=== PATIENT | female | born 1990 | race Caucasian/White ===

== ENCOUNTER 2016-09-16 14:11 | Emergency (ER) | payer OTHER ==
--- NOTE | 2016-09-16 17:40 | ED ORDER SUMMARY ---
..... Patient: EDVIN MCGILL OrderSheet [facility] VisitID: [id number] Juancarlos Velásquez [place] [address] 26y, F Registration Date/Time: 09/16/2016 ORDER SHEET Weight: 58.9 kg (stated) Allergies: Penicillin, Cephalosporins GENERAL ORDERS: CBC w Diff Urgent (14:42 09/16/2016 ABlanchette PA-C) (Ack 14:46 RKaruga) (14:47 ASchmuck) CMP Urgent (14:42 09/16/2016 ABlanchette PA-C) (Ack 14:46 RKaruga) (14:47 ASchmuck) UA-Culture if indicated Urgent (14:42 09/16/2016 ABlanchette PA-C) (Ack 14:46 RKaruga) (14:47 ASchmuck) Urine Urgent (14:42 09/16/2016 ABlanchette PA-C) (Ack 14:46 RKaruga) (14:47 ASchmuck) MEDICATION ORDERS: IV FLUIDS: IV NS with Normal Saline 1 Liter: initial bolus none -, then 1000 mL/hr for X1 (NOW) (14:42 09/16/2016 ABlanchette PA-C) (14:48 ASchmuck) Zofran IV 4 mg (NOW) (14:42 09/16/2016 ABlanchette PA-C) (14:48 ASchmuck) IV#2 NS : initial bolus none -, then 1000 mL/hr (NOW) (16:24 09/16/2016 Yan R.N. verbal order read back to ABlanchette PA-C) (16:25 Yan R.N.) Reglan IV 10 mg (NOW) (16:44 09/16/2016 ABlanchette PA-C) (16:51 Yan R.N.) ORDER SHEET NOTES: [Electronically signed by Tad Mancia R.N. (18:28 09/16/2016)] [Electronically signed by Florinda BernardC (23:47 09/16/2016)] [Electronically locked/signed by Tad Mancia R.N. (18:28 09/16/2016)]
--- NOTE | 2016-09-16 17:40 | ED ORDER SUMMARY ---
..... Patient: EDVIN MCGILL OrderSheet [facility] VisitID: [id number] Juancarlos Velásquez [place] [address] 26y, F Registration Date/Time: 09/16/2016 ORDER SHEET Weight: 58.9 kg (stated) Allergies: Penicillin, Cephalosporins GENERAL ORDERS: CBC w Diff Urgent (14:42 09/16/2016 ABlanchette PA-C) (Ack 14:46 RKaruga) (14:47 ASchmuck) CMP Urgent (14:42 09/16/2016 ABlanchette PA-C) (Ack 14:46 RKaruga) (14:47 ASchmuck) UA-Culture if indicated Urgent (14:42 09/16/2016 ABlanchette PA-C) (Ack 14:46 RKaruga) (14:47 ASchmuck) Urine Urgent (14:42 09/16/2016 ABlanchette PA-C) (Ack 14:46 RKaruga) (14:47 ASchmuck) MEDICATION ORDERS: IV FLUIDS: IV NS with Normal Saline 1 Liter: initial bolus none -, then 1000 mL/hr for X1 (NOW) (14:42 09/16/2016 ABlanchette PA-C) (14:48 ASchmuck) Zofran IV 4 mg (NOW) (14:42 09/16/2016 ABlanchette PA-C) (14:48 ASchmuck) IV#2 NS : initial bolus none -, then 1000 mL/hr (NOW) (16:24 09/16/2016 Yan R.N. verbal order read back to ABlanchette PA-C) (16:25 Yan R.N.) Reglan IV 10 mg (NOW) (16:44 09/16/2016 ABlanchette PA-C) (16:51 Yan R.N.) ORDER SHEET NOTES: [Electronically signed by Tad Mancia R.N. (18:28 09/16/2016)] [Electronically signed by Florinda BernardC (23:47 09/16/2016)] [Electronically locked/signed by Tad Mancia R.N. (18:28 09/16/2016)]
--- NOTE | 2016-09-16 17:40 | ED NURSING NOTES ---
Clinical Report - Nurses [facility] [address] [place] [address] 09/16/2016 14:15 Patient: EDVIN MCGILL TRIAGE Triage time 14:19 Sep 16 2016. Acuity: LEVEL 3. Chief Complaint: VOMITING and DIARRHEA. 14:09/16/16. Alert. No acute distress. SEPSIS SCREEN: Sepsis Screen. Negative (no infection suspected/documented). RACHEAL COMA SCORE: [place] Coma Scale: 15- eyes open spontaneously (4); best verbal response- oriented x 4 (5); best motor response- obeys commands (6). --14:29 Carola Chang 14:29 09/16/16. BP: 118/81. HR: 110. RR: 16. O2 saturation: 100%. Temp: 98.2 F. Pain level now 3/10. --14:29 Carola Chang. Weight: 58.9 kg stated. Height/Length: 62 inches Per Patient. BMI: 23.8. --14:28 Carola Chang. Medications None. --14:24 Carola Chang. Medication/allergy information source: the patient. --14:29 Carola Chang. Allergies Penicillin. --14:24 Carola Chang Cephalosporins. --14:25 Carola Chang. History Arrived by private vehicle. Historian: patient. Accompanied by spouse. No primary care physician. This started yesterday. ( Pt reports that she started vomiting last night and then having diarrhea in the middle of the night. Pt reports she house sit for a family that had noro-virus, pt's sister was sick as well. Pt reports that she has had decreased urination.). She has had nausea, vomiting, diarrhea and abdominal pain. The pain is described as located in the central area of the abdomen. She has had fever (unsure). No constipation. Last oral intake by patient was (yesterday morning). Treatment COURT MONITOR: (Tums). PAST MEDICAL HX: No history of diabetes mellitus. No history of gastroesophageal reflux disease, peptic ulcer disease or gallstones. Immunizations: up-to-date. Last normal menstrual period was 3 weeks ago. SOCIAL HX: Never smoker. Occasional alcohol use. No drug use. No recent travel. She has had contact with a sick individual. FALL RISK ASSESSMENT: Fall risk assessment completed. No fall risk identified. NUTRITIONAL RISK ASSESSMENT: The nutritional risk assessment revealed no deficiencies. FUNCTIONAL ASSESSMENT: Functional assessment: no impairments noted. LEARNING NEEDS ASSESSMENT: The learning needs assessment revealed no barriers. SKIN INTEGRITY ASSESSMENT: Skin integrity risk assessment completed. No skin integrity risk identified. --14:29 Carola Chang. Assessment The patient states feels the same. --14:29 Carola Chang. Interventions ID band on patient. --14: Carola Chang. PHYSICAL ASSESSMENT 14:09/16/16. Ambulatory to room. Patient gowned. GENERAL / NEURO / PSYCH: Alert. Oriented X 4. Appears in no acute distress. HEENT: Mucous membranes are pink. RESPIRATORY: Respirations not labored. CVS: Capillary refill less than 2 seconds. GI / : The patient has had nausea. Abdomen soft. Abdominal tenderness. Stool color normal. SKIN: Skin is warm and dry. --14:29 Carola Chang. NURSING PROGRESS NOTES 14:09/16/16. The plan of care for this patient has been created. Patient gowned. Head of bed elevated. Reassurance given. Two patient identifiers checked. Call light placed in reach. Side rails up x 1. Bed placed in lowest position. Brakes of bed on. Patient ready for evaluation- chart flagged and ED physician and PA notified. --14:29 Carola Chang 14:37 09/16/2016 Site #1 started via IV in the right antecubital space with an 20g angiocath, with aseptic technique and good blood return; one attempt. Blood drawn: rainbow set. Labeled in the presence of the patient and sent to the lab. Saline lock flushed with 10 mL saline. --14:47 Carola Chang 14:43 09/16/2016 Started bag #1 1000 mL IV Fluids IV NS (Saline); at 1000 mL/hr over 1 hour(s) via site #1 via IV pump. Allergies verified and confirmed 5 rights. IV patency established. IV site checked: no pain, redness, or swelling. IV flushed thoroughly pre- and post-medication administration. --14:48 Carola Chang 14:45 09/16/2016 Zofran (Ondansetron HCl) IVP 4 mg given over 1 minute(s) via site #1. Allergies verified and confirmed 5 rights. IV patency established. IV site checked: no pain, redness, or swelling. IV flushed thoroughly pre- and post-medication administration. IVP given by RN. --14:48 Carola Chang 15:32 09/16/16. BP: 104/67. HR: 103. RR: 15. O2 saturation: 100%. Pain level now 08/31. --15:32 Carola Chang 15:40 09/16/2016 IV Fluids IV NS Discontinued: bag #1 infused. Total amount infused: 1000 mL. IV patency established. IV site checked: no pain, redness, or swelling. IV flushed thoroughly. --15:55 Tad Mancia R.NKelsea 16:03 09/16/16. Care transferred and report given (Tad Monroy RN). --16:03 Carola Chang 16:15 09/16/2016 Started bag #1 1000 mL IV Fluids IV#2 NS (Saline); at 1000 mL/hr over 60 minute(s) via site #1 via IV pump. Allergies verified and confirmed 5 rights. IV patency established. IV site checked: no pain, redness, or swelling. IV flushed thoroughly pre- and post-medication administration. --16:25 Tad Mancia R.N. 16:29 09/16/16. BP: 101/54. HR: 107. RR: 16. O2 saturation: 100% on room air. --16:30 Tad Mancia RKelseaNKelsea 16:51 09/16/2016 Reglan (Metoclopramide HCl) IVP 10 mg given over 2 minute(s) via site #1. Allergies verified and confirmed 5 rights. IV patency established. IV site checked: no pain, redness, or swelling. IV flushed thoroughly pre- and post-medication administration. IVP given by RN. --16:51 Tad Mancia R.N. 17:20 09/16/2016 IV Fluids IV#2 NS Discontinued: bag #2 infused. Total amount infused: 1000 mL. IV patency established. IV site checked: no pain, redness, or swelling. IV flushed thoroughly. --18:23 Tad Mancia R.N. 17:45 09/16/2016 Site #1 removed upon discharge. Catheter intact. Manual pressure, pressure dressing and bandaid applied. --18:23 Tad Mancia R.N. DISPOSITION / DISCHARGE 17:45 09/16/16. BP: 111/58. HR: 117. RR: 16. O2 saturation: 100%. Temp: 98.9 F. Pain level now: 07/31. --18:17 Tad Mancia R.N. Departure time: 1750. --18:18 Tad Mancia R.N. 17:50. No learning barriers present. Discharge instructions provided and reviewed with the patient. Reviewed medication(s) dosing information (prescription given to pt). Reviewed referral to family practice for followup. Reviewed clear liquid diet (then advance diet as tolerated). Patient verbalized understanding. Written instructions provided in Bel[place]ian. The patient was discharged by the physician. She was discharged home and accompanied by spouse. She left the Emergency Department ambulatory and via private vehicle. Spouse driving. --18:20 Tad Mancia R.N. Locked/Released at 09/16/2016 18:28 by Tad Mancia R.N.
--- NOTE | 2016-09-16 17:40 | ED CLINICAL REPORT ---
Clinical Report - Physicians/Mid Levels [facility] [address] [place] [address] 09/16/2016 14:15 Patient: EDVIN MCGILL Time Seen: 1430. Arrived- By private vehicle. Historian- patient. HISTORY OF PRESENT ILLNESS Chief Complaint: VOMITING and DIARRHEA. This started last night ( Pt reports that she started vomiting last night and then having diarrhea in the middle of the night. Pt reports she house sit for a family that had noro-virus, pt's sister was sick as well. Pt reports that she has had decreased urination.). She has had nausea, vomiting, diarrhea and abdominal pain. The pain is described as located in the central area of the abdomen. She has had fever (unsure). No constipation. Last oral intake by patient was (yesterday morning). pt states she has vomited about '40 times' and has diarrhea every time she vomits... The patient has had moderate nausea, severe vomiting. The vomiting has occurred numerous times and moderate, crampy, colicky, intermittent abdominal pain. The pain is described as located in the central area of the abdomen and associated with nausea, vomiting and diarrhea. The patient has had diarrhea. It has been watery. No bloody stools. Has not recently been camping or on antibiotics. She has had contact with a sick friend. Symptoms of the sick contact include nausea, vomiting and diarrhea. They have had similar symptoms. The illness is described as moderate. Similar symptoms previously: None. Recent medical care: Not recently seen/assessed. REVIEW OF SYSTEMS The patient has had fever. No difficulty with urination. All systems otherwise negative, except as recorded above. PAST HISTORY See nurses notes. Problems: Sick Contact. Medications: None. Allergies: Cephalosporins. Penicillin. SOCIAL HISTORY Never smoker. Occasional alcohol use. No drug use. FAMILY HISTORY Negative. ADDITIONAL NOTES The nursing notes have been reviewed with agreement regarding the chief complaint, HPI, ROS, PMH and patient medications and allergies. PHYSICAL EXAM Vital Signs: 09/16/2016 14:29 BP: 118/81. HR: 110. RR: 16. O2 saturation: 100%. Temp: 98.2 F. Have been reviewed. Appearance: Alert. Oriented X3. No acute distress. Anxious. Eyes: Pupils equal, round and reactive to light. Neck: Normal inspection. Neck supple. CVS: Normal heart rate and rhythm. Heart sounds normal. Respiratory: No respiratory distress. Breath sounds normal. Abdomen: Soft and nontender. Abnormal bowel sounds: hyperactive. No organomegaly. No mass. Femoral pulses equal. Skin: Skin warm and dry. Normal skin color. No rash. Normal skin turgor. LABS, X-RAYS, AND EKG Laboratory Tests: UA-Culture if indicated: (JUAN ALBERTO: 09/16/2016 14:32) ( [facility] [place] 09/16/[place] 15:09) Final results Test Result Flag Units (Reference) URINE COLOR YELLOW URINE APPEARANCE CLEAR URINE GLUCOSE NEGATIVE (NEGATIVE) URINE BILIRUBIN NEGATIVE (NEGATIVE) URINE KETONE 2+ (NEGATIVE) URINE SPECIFIC GRAVITY >= 1.030 (1.010-1.030) URINE PH 6.0 (5.0-8.0) URINE PROTEIN TRACE (NEGATIVE) URINE UROBILINOGEN 0.2 EU/dL (0.2-1.0) URINE NITRITE NEGATIVE (NEGATIVE) URINE BLOOD NEGATIVE (NEGATIVE) URINE LEUK ESTERASE NEGATIVE (NEGATIVE) URINE RBC 0-1 rbc/hpf (0-1) URINE WBC 1-3 wbc/hpf (0-1) URINE EPITHELIAL CELLS 1-3 EPI/hpf (0-5) URINE BACTERIA TRACE (<1+) (NONE SEEN) URINE COMMENT CULT NOT INDICATED YEAST 1+URINE CULTURES ARE SET-UP BASED ON THE FOLLOWING CRITERIA:POSITIVE NITRITEPOSITIVE LEUKOCYTE ESTERASEGREATER THAN 10 WHITE BLOOD CELLSMODERATE (2+) OR GREATER BACTERIA Urine: (JUAN ALBERTO: 09/16/2016 14:32) ( [facility] [place] 09/16/2016 14:55) Final results Test Result Flag Units (Reference) URINE NEGATIVE CBC w Diff: (JUAN ALBERTO: 09/16/2016 14:40) ( [facility] [place] 09/16/2016 14:59) Final results Test Result Flag Units (Reference) WHITE BLOOD COUNT 10.9 K/uL (4.5-11.5) RED BLOOD COUNT 4.78 M/uL (4.00-5.20) HEMOGLOBIN 14.1 gm/dL (12.0-16.0) HEMATOCRIT 42.2 % (36.0-46.0) MEAN CELL VOLUME 88 fL (80-100) MEAN CORPUSCULAR HGB 30 pg (26-34) MEAN CORPUSCULAR HGB CONC 34 g/dL (31-37) RED CELL DISTRIBUTION WIDTH 12.6 % (11.6-14.8) PLATELET COUNT 335 K/uL (150-400) NEUTROPHIL % 91.1 H % (50-75) LYMPH % 5.8 L % (25-40) MONO % 3.1 % (3-14) EOSINOPHIL % 0 % (0-4) BASOPHIL % 0 % (0-2) CMP: (JUAN ALBERTO: 09/16/2016 14:40) ( [facility] 09/16/2016 15:15) Final results Test Result Flag Units (Reference) GLUCOSE 102 mg/dL (70-110) BUN 15 mg/dL (7-18) CREATININE 0.7 mg/dL (0.6-1.3) Estimated GFR >60 mL/min Estimated GFR- >60 mL/min Note: Persistent reduction over 3 months in eGFR<60 mL/min/1.73 m2 defines CKD. Patients with eGFR values>=60 mL/min/1.73 m2 may also have CKD if evidence ofpersistent proteinuria. Additional information may be foundat www.kidney.org. SODIUM 142 mmol/L (136-145) POTASSIUM 3.2 L mmol/L (3.5-5.1) CHLORIDE 103 mmol/L (98-107) CARBON DIOXIDE 25 mmol/L (21-32) CALCIUM 9.2 mg/dL (8.5-10.1) TOTAL PROTEIN 8.2 g/dL (6.4-8.2) ALBUMIN 3.9 g/dL (3.3-5.0) BILIRUBIN, TOTAL 0.4 mg/dL (0.0-1.0) ALKALINE PHOSPHATASE 70 U/L (46-116) AST (SGOT) 14 L U/L (15-37) ALT (SGPT) 22 U/L (12-78) . PROGRESS AND PROCEDURES Course of Care: 14:29 09/16/16. The plan of care for this patient has been created. Patient gowned. Head of bed elevated. Reassurance given. Two patient identifiers checked. Call light placed in reach. Side rails up x 1. Bed placed in lowest position. Brakes of bed on. Patient ready for evaluation- chart flagged and ED physician and PA notified. --14:29 Carola Chang 14:37 09/16/2016 Site #1 started via IV in the right antecubital space with an 20g angiocath, with aseptic technique and good blood return; one attempt. Blood drawn: rainbow set. Labeled in the presence of the patient and sent to the lab. Saline lock flushed with 10 mL saline. --14:47 Carola Chang 14:43 09/16/2016 Started bag #1 1000 mL IV Fluids IV NS (Saline); at 1000 mL/hr over 1 hour(s) via site #1 via IV pump. Allergies verified and confirmed 5 rights. IV patency established. IV site checked: no pain, redness, or swelling. IV flushed thoroughly pre- and post-medication administration. --14:48 Carola Chang 14:45 09/16/2016 Zofran (Ondansetron HCl) IVP 4 mg given over 1 minute(s) via site #1. Allergies verified and confirmed 5 rights. IV patency established. IV site checked: no pain, redness, or swelling. IV flushed thoroughly pre- and post-medication administration. IVP given by RN. --14:48 Carola Chang 15:32 09/16/16. BP: 104/67. HR: 103. RR: 15. O2 saturation: 100%. Pain level now 210. --15:32 Carola Chang 15:40 09/16/2016 IV Fluids IV NS Discontinued: bag #1 infused. Total amount infused: 1000 mL. IV patency established. IV site checked: no pain, redness, or swelling. IV flushed thoroughly. --15:55 Tad Mancia, RKelseaNKelsea 16:03 09/16/16. Care transferred and report given (Tad R, RN). --16:03 Carola Chang 16:15 09/16/2016 Started bag #1 1000 mL IV Fluids IV#2 NS (Saline); at 1000 mL/hr over 60 minute(s) via site #1 via IV pump. Allergies verified and confirmed 5 rights. IV patency established. IV site checked: no pain, redness, or swelling. IV flushed thoroughly pre- and post-medication administration. --16:25 Tad Mancia R.N. 16:29 09/16/16. BP: 101/54. HR: 107. RR: 16. O2 saturation: 100% on room air. --16:30 Tad Mancia R.N. 16:51 09/16/2016 Reglan (Metoclopramide HCl) IVP 10 mg given over 2 minute(s) via site #1. Allergies verified and confirmed 5 rights. IV patency established. IV site checked: no pain, redness, or swelling. IV flushed thoroughly pre- and post-medication administration. IVP given by RN. --16:51 Tad Mancia R.N. 17:20 09/16/2016 IV Fluids IV#2 NS Discontinued: bag #2 infused. Total amount infused: 1000 mL. IV patency established. IV site checked: no pain, redness, or swelling. IV flushed thoroughly. --18:23 Tad Mancia R.N. 17:45 09/16/2016 Site #1 removed upon discharge. Catheter intact. Manual pressure, pressure dressing and bandaid applied. --18:23 Tad Mancia R.N. Patient is stable. Physical exam findings are improved. Symptoms much better. CLINICAL IMPRESSION Acute norovirus gastroenteritis with volume depletion. Acute mild aleksandar vaginitis. INSTRUCTIONS Rest. Do not work for two until better. Take clear liquids only today. Advance diet as tolerated. Other diet: avoid sugars. Warnings: Further evaluation is necessary. It is very important to follow up with a physician. GENERAL WARNINGS: Return or contact your physician immediately if your condition worsens or changes unexpectedly, if not improving as expected, or if other problems arise. Prescription Medications: Reglan 10 mg tablets: take 1 orally every 8 hours as needed for nausea or vomiting. Dispense twenty (20). No refills. Substitution is permissible. Diflucan 150 mg tablets: take 1 tablet orally for 1 day. No refill. Substitution is permissible. Understanding of the discharge instructions verbalized by patient. (Electronically signed by Florinda Bernard PA-C 09/16/2016 23:47)
--- NOTE | 2016-09-16 23:47 | ED DISCHARGE INSTRUCTIONS ---
Patient: EDVIN MCIGLL General Instructions [facility] VisitID: [id number] [address] [place] [address] 26y, F Registration Date/Time: 09/16/2016 Acute norovirus gastroenteritis with volume depletion. Acute mild aleksandar vaginitis. INSTRUCTIONS Rest. Do not work for two until better. Take clear liquids only today. Advance diet as tolerated. Other diet: avoid sugars. Warnings: Further evaluation is necessary. It is very important to follow up with a physician. GENERAL WARNINGS: Return or contact your physician immediately if your condition worsens or changes unexpectedly, if not improving as expected, or if other problems arise. Prescription Medications: Reglan 10 mg tablets: take 1 orally every 8 hours as needed for nausea or vomiting. Dispense twenty (20). No refills. Substitution is permissible. Diflucan 150 mg tablets: take 1 tablet orally for 1 day. No refill. Substitution is permissible. Understanding of the discharge instructions verbalized by patient. Rest. Do not work for two until better. (Electronically signed by Florinda Bernard PA-C 09/16/2016 23:47)
--- NOTE | 2016-09-16 23:47 | ED MED RECONCILIATION SUMMARY ---
Patient: EDVIN MCGILL Medication Reconciliation Report [facility] VisitID: [id number] [address] [place] [address] 26y, F Registration Date/Time: 09/16/2016 Weight: 58.9 kg Height/Length: 62 in. BMI: 23.8 ALLERGIES: Cephalosporins, Penicillin The patient's Home Medications are listed below: NONE. The source(s) of the original Home Medication information: patient The following Medications were given to the patient in the Emergency Department: IV NS IV Fluids bolus 0, then 1000 mL/hr, administered: 09/16/2016 2:43:00 PM Zofran [IVP] IVP 4 mg, administered: 09/16/2016 2:45:00 PM IV#2 NS IV Fluids bolus 0, then 1000 mL/hr, administered: 09/16/2016 4:15:00 PM Reglan [IVP] IVP 10 mg, administered: 09/16/2016 4:51:00 PM The following Medications were prescribed to the patient: Reglan 10 mg tablets: take 1 orally every 8 hours as needed for nausea or vomiting. Dispense twenty (20). No refills. Substitution is permissible. -- Florinda Bernard PA-C Diflucan 150 mg tablets: take 1 tablet orally for 1 day. No refill. Substitution is permissible. -- Florinda Bernard PA-C
--- NOTE | 2016-09-16 23:47 | ED MAR SUMMARY ---
..... Medication Administration Record [facility] [address] [address] Patient: EDVIN MCGILL Visit ID: [id number] 26y, F Weight: 58.9 kg Height/Length: 62 in BMI: 23.8 ALLERGIES: Cephalosporins, Penicillin Start 14:43 09/16/2016 Carola Chang,, Stop 15:40 09/16/2016 Tad Mancia RKelseaN. Medication Administered: IV NS (SALINE), Dose: IV Fluids over 1 hour(s), Rate: 1000 mL/hr, Dispensed: 1000 mL bag, Site: #1 right AC. Medication Ordered: IV NS with Normal Saline 1 Liter: initial bolus none -, then 1000 mL/hr for X1 (NOW). Given 14:45 09/16/2016 Carola Chang, Medication Administered: ZOFRAN [IVP] (ONDANSETRON HCL), Dose: 4 mg IVP over 1 minute(s), Site: #1 right AC. Medication Ordered: Zofran IV 4 mg (NOW). Start 16:15 09/16/2016 Tad Mancia RKelseaN., Stop 17:20 09/16/2016 Tad Mancia, R.N. Medication Administered: IV#2 NS (SALINE), Dose: IV Fluids over 60 minute(s), Rate: 1000 mL/hr, Dispensed: 1000 mL bag, Site: #1 right AC. Medication Ordered: IV#2 NS : initial bolus none -, then 1000 mL/hr (NOW). Given 16:51 09/16/2016 Tad Mancia R.N. Medication Administered: REGLAN [IVP] (METOCLOPRAMIDE HCL), Dose: 10 mg IVP over 2 minute(s), Site: #1 right AC. Medication Ordered: Reglan IV 10 mg (NOW).
--- NOTE | 2016-09-16 23:47 | ED DISCHARGE INSTRUCTIONS ---
Patient: EDVIN MCGILL General Instructions [facility] VisitID: [id number] [address] [place] [address] 26y, F Registration Date/Time: 09/16/2016 Acute norovirus gastroenteritis with volume depletion. Acute mild aleksandar vaginitis. INSTRUCTIONS Rest. Do not work for two until better. Take clear liquids only today. Advance diet as tolerated. Other diet: avoid sugars. Warnings: Further evaluation is necessary. It is very important to follow up with a physician. GENERAL WARNINGS: Return or contact your physician immediately if your condition worsens or changes unexpectedly, if not improving as expected, or if other problems arise. Prescription Medications: Reglan 10 mg tablets: take 1 orally every 8 hours as needed for nausea or vomiting. Dispense twenty (20). No refills. Substitution is permissible. Diflucan 150 mg tablets: take 1 tablet orally for 1 day. No refill. Substitution is permissible. Understanding of the discharge instructions verbalized by patient. Rest. Do not work for two until better. (Electronically signed by Florinda Bernard PA-C 09/16/2016 23:47)
--- NOTE | 2016-09-16 23:47 | ED MAR SUMMARY ---
..... Medication Administration Record [facility] [address] [place] [address] Patient: EDVIN MCGILL Visit ID: [id number] 26y, F Weight: 58.9 kg Height/Length: 62 in BMI: 23.8 ALLERGIES: Cephalosporins, Penicillin Start 14:43 09/16/2016 Carola Chang,, Stop 15:40 09/16/2016 Tad Mancia RKelseaN. Medication Administered: IV NS (SALINE), Dose: IV Fluids over 1 hour(s), Rate: 1000 mL/hr, Dispensed: 1000 mL bag, Site: #1 right AC. Medication Ordered: IV NS with Normal Saline 1 Liter: initial bolus none -, then 1000 mL/hr for X1 (NOW). Given 14:45 09/16/2016 Carola Chang, Medication Administered: ZOFRAN [IVP] (ONDANSETRON HCL), Dose: 4 mg IVP over 1 minute(s), Site: #1 right AC. Medication Ordered: Zofran IV 4 mg (NOW). Start 16:15 09/16/2016 Tad Mancia RKelseaN., Stop 17:20 09/16/2016 Tad Mancia, R.N. Medication Administered: IV#2 NS (SALINE), Dose: IV Fluids over 60 minute(s), Rate: 1000 mL/hr, Dispensed: 1000 mL bag, Site: #1 right AC. Medication Ordered: IV#2 NS : initial bolus none -, then 1000 mL/hr (NOW). Given 16:51 09/16/2016 Tad Mancia R.N. Medication Administered: REGLAN [IVP] (METOCLOPRAMIDE HCL), Dose: 10 mg IVP over 2 minute(s), Site: #1 right AC. Medication Ordered: Reglan IV 10 mg (NOW).
--- NOTE | 2016-09-16 23:47 | ED MED RECONCILIATION SUMMARY ---
Patient: EDVIN MCGILL Medication Reconciliation Report [facility] VisitID: [id number] [address] [place] [address] 26y, F Registration Date/Time: 09/16/2016 Weight: 58.9 kg Height/Length: 62 in. BMI: 23.8 ALLERGIES: Cephalosporins, Penicillin The patient's Home Medications are listed below: NONE. The source(s) of the original Home Medication information: patient The following Medications were given to the patient in the Emergency Department: IV NS IV Fluids bolus 0, then 1000 mL/hr, administered: 09/16/2016 2:43:00 PM Zofran [IVP] IVP 4 mg, administered: 09/16/2016 2:45:00 PM IV#2 NS IV Fluids bolus 0, then 1000 mL/hr, administered: 09/16/2016 4:15:00 PM Reglan [IVP] IVP 10 mg, administered: 09/16/2016 4:51:00 PM The following Medications were prescribed to the patient: Reglan 10 mg tablets: take 1 orally every 8 hours as needed for nausea or vomiting. Dispense twenty (20). No refills. Substitution is permissible. -- Florinda Bernard PA-C Diflucan 150 mg tablets: take 1 tablet orally for 1 day. No refill. Substitution is permissible. -- Florinda Bernard PA-C
== END 2016-09-16 17:50 | disposition home or self-care (01) ==
LOC: ED SRH 14:11
DX: A08.11 Acute gastroenteropathy due to Norwalk agent (principal); B37.3 Candidiasis of vulva and vagina; Z88.0 Allergy status to penicillin
CPT/HCPCS: 90004; 90100; 93070; 95059